=== PATIENT | male | born 1970 | race Caucasian/White ===

== ENCOUNTER → 2016-10-21 | Outpatient (CLI) | payer MEDICARE, OTHER ==
[~2016-10-21] MED LIST: CARI350T27 PO; FLM4 PO; LSX20 PO; PHEN37.585 PO; WARF2TAB PO; ZOLP10TA6 PO
--- NOTE | 2016-10-21 11:37 | DIAGNOSTIC IMAGING REPORT ---
RIGHT KNEE 3 VIEWS; LEFT KNEE 2 VIEWS CLINICAL HISTORY: Right knee pain. FINDINGS: An AP standing view of both knees, a sunrise view of both knees, and a crosstable lateral view of the right knee are compared to study dated 10/19/2015. The skeletal structures are osteopenic. No fracture is seen. A right knee arthroplasty is in near anatomic alignment. Bony overgrowth is noted peripherally along the medial femoral condyle. There has been undersurface remodeling of the patella. No Periprosthetic lucency is identified. There is a joint effusion, and mild soft tissue swelling is present around the right knee. The left knee shows evidence of previous ACL repair. There is moderate degenerative joint space narrowing seen at all 3 compartments. There are large marginal osteophytes identified. Numerous surgical clips are present within both leg. There is advanced atherosclerotic calcification of the popliteal arteries. IMPRESSION: 1. No acute bony abnormality is seen at either knee, and there has been no significant change from 10/19/2015. 2. A right knee arthroplasty is in near-anatomic alignment. 3. There is a joint effusion and soft tissue swelling on the right. 4. Postoperative and degenerative change in the left knee as above. Electronically signed by: Deejay Sinha M.D. 10/21/2016 11:35 AM Dictated Date/Time: 10/21/2016 11:32 AM
== END | disposition home or self-care (01) ==
LOC: C.RDSM 11:20
PROVIDERS: ATTEND Physician Assistant
DX: Z96.659 Presence of unspecified artificial knee joint (principal); M25.561 Pain in right knee; Z98.890 Other specified postprocedural states

== ENCOUNTER → 2017-11-17 | Outpatient (CLI) | payer OTHER ==
--- NOTE | 2017-11-17 11:14 | DIAGNOSTIC IMAGING REPORT ---
R KNEE 3 VIEWS CLINICAL HISTORY: 47 years-old Male presenting with S/P RIGHT TOTAL KNEE ARTHROPLASTY. TECHNIQUE: Frontal view of the bilateral knees in standing position as well as bilateral sunrise and crosstable lateral view of the right knee were obtained. COMPARISON: 10/21/2016. FINDINGS: Right: Postsurgical changes of total right knee arthroplasty with patellar resurfacing. Slight valgus angulation is unchanged from prior. Less than 2 mm of lucency subjacent to the tibial plateau component. Prominent degenerative or posttraumatic related ossification along the medial femoral condyle, unchanged. No patellar subluxation. Numerous surrounding surgical clips. Atherosclerosis. No acute fracture or acute malalignment. Left: Post surgical changes of ACL repair. No patellar subluxation. Mild medial joint space loss. Osteophytosis most evident in the medial and patellofemoral compartments. No gross evidence of acute fracture or acute malalignment. IMPRESSION: 1. Stable post surgical changes of total right knee arthroplasty with patellar resurfacing including slight valgus alignment and nonsignificant radiolucency subjacent to the tibial plateau. No acute hardware complication. 2. Postsurgical changes of left knee ACL repair. 3. Medial and patellofemoral compartment degenerative changes of the left knee. Electronically signed by: Viktor Maier M.D. 11/17/2017 11:12 AM Dictated Date/Time: 11/17/2017 11:09 AM
== END | disposition home or self-care (01) ==
LOC: C.RDSM 14:33
PROVIDERS: ATTEND Physician Assistant
DX: Z96.651 Presence of right artificial knee joint (principal); M17.12 Unilateral primary osteoarthritis, left knee